=== PATIENT | female | born 1980 | race Hispanic/Latino ===

== ENCOUNTER 2019-11-01 05:24 | Observation (INO) | payer OTHER ==
[2019-10-31 17:58] LABS: BASOPHILS % (AUTO) 0.7 % (0.0-5.0); EOSINOPHILS % (AUTO) 1.1 % (0.0-8.0); HEMATOCRIT 40.9 % (36-48); LYMPHOCYTES % (AUTO) 46.1 % (21.0-51.0); MEAN CORPUSCULAR HEMOGLOBIN 31.3 pg (27.0-33.0); MEAN CORPUSCULAR VOLUME 94.9 fL (79-99); MONOCYTES % (AUTO) 7.6 % (3.0-13.0); NEUTROPHILS % (AUTO) 44.1 % (40.0-77.0); PLATELET COUNT (AUTO) 288 K/uL (130-400); RED BLOOD CELL COUNT(AUTO) 4.31 MIL/uL (4.00-5.50); WHITE BLOOD COUNT (AUTO) 5.7 K/uL (4.8-10.8)
[2019-10-31 18:09] VITALS: BP 117/71
[~2019-11-01] VITALS: Ht 162.6 cm; Wt 57.9 kg
[2019-11-01] VITALS (24 sets, daily range): BP systolic 102–128; BP diastolic 58–86
[2019-11-01] MEDS: DEXTROSE 5 %-0.45 % NACL 1,000 ML IV SCH (02:30)
[~2019-11-01 05:24] MED LIST: ORTHO TRI CYCLEN LO PO
[2019-11-01] MEDS ORDERED: LACTATED RINGERS 1000ML 1,000 ML IV ONE (05:30)
[2019-11-01] MEDS ORDERED: CEFAZOLIN SODIUM 1 GM VIAL ONE (05:30)
[2019-11-01] MEDS ORDERED: LACTATED RINGERS 1000ML 1,000 ML IV SCH (08:00)
[2019-11-01] MEDS: CEFAZOLIN SODIUM 1 GM VIAL IVP ONE ×2 (08:05→09:02)
[2019-11-01] MEDS ORDERED: LIDOCAINE PF 2% 5ML ABBOJECT ONE (08:19)
[2019-11-01] MEDS ORDERED: ROCURONIUM 10MG/1ML SYR 10 MG/ML ML ONE (08:19)
[2019-11-01] MEDS ORDERED: PROPOFOL 10 MG/ML 20ML VIAL IV ONE (08:19)
[2019-11-01] MEDS ORDERED: SUCCINYLCHOLINE 200MG/10ML SYR ONE (08:19)
[2019-11-01] MEDS ORDERED: FENTANYL CITRATE PF 50 MCG/1 ML 2ML VIAL ONE (08:19)
[2019-11-01] MEDS ORDERED: MIDAZOLAM HCL 1 MG/ML 2ML VIAL ONE (08:48)
[2019-11-01] MEDS ORDERED: GLYCOPYRROLATE 1 MG/5 ML SYRINGE ONE (09:54)
[2019-11-01] MEDS ORDERED: ONDANSETRON HCL 4 MG/2 ML VIAL ONE ×2 (09:55→10:46)
[2019-11-01] MEDS ORDERED: NEOSTIGMINE 5MG/5ML SYR IV ONE (09:55)
[2019-11-01] MEDS ORDERED: MEPERIDINE-PF 50 MG/ML SYG ONE (09:57)
[2019-11-01] MEDS ORDERED: MEPERIDINE-PF 25 MG/ML SYG ONE (10:46)
[2019-11-01] MEDS ORDERED: MEPERIDINE-PF 25 MG/ML SYG IM PRN (11:45)
[2019-11-01] MEDS ORDERED: IBUPROFEN 600 MG TABLET PO PRN (11:45)
[2019-11-01] MEDS ORDERED: PROMETHAZINE HCL 25 MG/ML 1ML AMPULE IM PRN ×2 (11:45)
[2019-11-01] MEDS ORDERED: BISACODYL 10 MG SUPP.RECT RC PRN (11:45)
[2019-11-01] MEDS ORDERED: MEPERIDINE-PF 50 MG/ML SYG IM PRN (11:45)
[2019-11-01] MEDS ORDERED: ONDANSETRON HCL 4 MG/2 ML VIAL IVP PRN (12:00)
--- NOTE | 2019-11-01 12:05 | NUR ---
PATIENT CALLED FOR ASSISTANCE TO AMBULATE TO RESTROOM. BEDPAN OFFERED, PT REFUSED. NO DIZZINESS REPORTED. PATIENT UNABLE TO VOID AT THIS TIME. ADVISED PATIENT TO CALL WHEN NEEDING ASSISTANCE AMBULATING.
[2019-11-01] MEDS ORDERED: MEPERIDINE-PF 100 MG/ML SYG ONE (13:04)
--- NOTE | 2019-11-01 13:57 | NUR ---
PATIENT RESTING WITH EYES CLOSED, CHEST RISING AND FALLING IN NORMAL PATTERN. NO DISTRESS NOTED. CALL LIGHT LEFT IN REACH.
[2019-11-01] MEDS: ACETAMINOPHEN-CODEINE 300/30MG TAB PO PRN ×2 (15:57→19:40)
[2019-11-01] MEDS: SIMETHICONE 80 MG TAB.CHEW PO PRN (21:00)
[2019-11-01] MEDS: DOCUSATE SODIUM 100 MG CAP PO PRN (21:00)
[2019-11-02] MEDS: DEXTROSE 5 %-0.45 % NACL 1,000 ML IV SCH (03:06)
[2019-11-02 03:49] VITALS: BP 116/72
[2019-11-02 05:19] LABS: HEMATOCRIT 37.2 % (36-48); MEAN CORPUSCULAR HEMOGLOBIN 30.9 pg (27.0-33.0); MEAN CORPUSCULAR HGB CONC 33.3 g/dL (32.0-36.0); MEAN CORPUSCULAR VOLUME 92.8 fL (79-99); PLATELET COUNT (AUTO) 254 K/uL (130-400); RED BLOOD CELL COUNT(AUTO) 4.01 MIL/uL (4.00-5.50); RED CELL DISTRIBUTION WIDTH 12.6 % (11.0-15.5); WHITE BLOOD COUNT (AUTO) 10.7 K/uL (4.8-10.8)
[2019-11-02 07:30] VITALS: BP 120/73
[2019-11-02] MEDS: ACETAMINOPHEN-CODEINE 300/30MG TAB PO PRN (07:48)
[2019-11-02] MEDS: DOCUSATE SODIUM 100 MG CAP PO PRN (08:38)
[2019-11-02] MEDS: SIMETHICONE 80 MG TAB.CHEW PO PRN (08:38)
--- NOTE | 2019-11-02 09:20 | NUR ---
verbal and written discharge instructions given, prescription given, informed of the follow up appointment, informed to call the doctor for any concerns, pt voiced understanding to all things discussed. Addendum: 11/02/19 at 0928 by YEVGENIY KEBEDE RN Amended: Links added.
--- NOTE | 2019-11-02 10:15 | NUR ---
pt is dismissed in stable condition, brought to private car via wheelchair by zara Serna pcp Addendum: 11/02/19 at 1025 by YEVGENIY KEBEDE RN Amended: Links added.
== END 2019-11-02 10:15 | disposition home or self-care (01) ==
LOC: DAH 05:24 → WSH 05:25 → DAH 05:25 → WSH 05:26
PROVIDERS: ADMIT Obstetrics & Gynecology; ATTEND Obstetrics & Gynecology
DX: D25.9 Leiomyoma of uterus, unspecified (principal); N92.1 Excessive and frequent menstruation with irregular cycle; R87.619 Unspecified abnormal cytological findings in specimens from cervix uteri; K46.9 Unspecified abdominal hernia without obstruction or gangrene; I10 Essential (primary) hypertension; E11.9 Type 2 diabetes mellitus without complications; Z87.410 Personal history of cervical dysplasia; Z79.899 Other long term (current) drug therapy
CPT/HCPCS: 36415 ×2; 58263; 84703; 85025; 85027; 86850; 86900; 86901; 88302; 88307; 96372; A4215; A4221; A4222; A4223; A4351; A4606; A4663; G0378 ×27; J0330; J0690; J2001; J2175 ×4; J2250; J2405 ×2; J2550; J2704; J2710; J3010; J3490; J7030; J7120

== ENCOUNTER → 2020-05-03 | Outpatient (CLI) | payer OTHER | END | disposition home or self-care (01) | LOC: RAH 08:32 | PROVIDERS: ATTEND Internal Medicine Cardiovascular Disease | DX: R07.9 Chest pain, unspecified (principal) | CPT/HCPCS: 93015 ==

== ENCOUNTER → 2020-06-21 | Outpatient (CLI) | payer OTHER | END | disposition home or self-care (01) | LOC: RAH 11:07 | PROVIDERS: ATTEND Internal Medicine Cardiovascular Disease | DX: Z13.6 Encounter for screening for cardiovascular disorders (principal) | CPT/HCPCS: 75571 ==